=== PATIENT | male | born 1995 | race African-American/Black ===

== ENCOUNTER 2016-11-22 19:51 | Emergency (ER) | payer MEDICAID ==
[~2016-11-22] VITALS: Ht 175.3 cm; Wt 93.4 kg
[2016-11-22 20:46] VITALS: BP 155/90
[2016-11-23] MEDS ORDERED: IBUPROFEN 600MG TABLET PO ONE (01:15)
== END 2016-11-23 01:14 | disposition home or self-care (01) ==
LOC: ER 19:51
DX: J01.90 Acute sinusitis, unspecified (principal); F17.210 Nicotine dependence, cigarettes, uncomplicated
CPT/HCPCS: 99283